=== PATIENT | male | born 1995 | race Caucasian/White ===

== ENCOUNTER 2016-10-19 07:13 | Outpatient (CLI) | END 2016-10-19 07:14 | LOC: AMBL 07:13 | PROVIDERS: ATTEND Emergency Medicine | DX: R56.9 Unspecified convulsions (principal) ==

== ENCOUNTER 2017-11-18 09:47 | Emergency (ER) ==
[2017-11-18 09:58] VITALS: BP 179/108; TEMP 98.1; BMI 24.3
[2017-11-18] MEDS ORDERED: ATIVAN IM STA (10:17)
[2017-11-18] MEDS ORDERED: ZESTRIL PO STA (10:37)
--- NOTE | 2017-11-18 11:10 | ED.PDOC ---
General ED Provider: Dr. MONTSE PEDROZA Chief Complaint: Hypertension Stated Complaint: CHEST PAIN , PALPITATION , HYPRTENSION Time Seen by Physician: 09:52 (STATED HE HAS A CHRONIC HYPERTENSION DOES NOT ABUSE DRUGS ) Mode of Arrival: Walk-In Information Source: Patient Exam Limitations: No limitations Primary Care Provider: ARCHIE FINK Referred to ED by: Other (SEEN WITH PT'S NURSE AT ALL TIMES NO SYNCOPE ) Nursing and Triage Documentation Reviewed and Agree: Yes Reviewed sepsis parameters & appropriate labs ordered?: No System Inflammatory Response Syndrome: Not Applicable Sepsis Protocol: For patient's 13 years and over: Temp is 96.8 and below OR 101 and greater Pulse >90 BPM Resp >20/minute Acutely Altered Mental Status Are patient's symptoms suggestive of a new infection, such as: -Pneumonia -Skin, Soft Tissue -Endocarditis -UTI -Bone, Joint Infection -Implantable Device -Acute Abdominal Infection -Wound Infection -Meningitis -Blood Stream Catheter Infection -Unknown System Inflammatory Response Syndrome: Not Applicable Review of Systems - Review Of Systems Constitutional: Reports: No symptoms Eyes: Reports: No symptoms Ears, Nose, Mouth, Throat: Reports: No symptoms Respiratory: Reports: No symptoms Cardiac: Reports: Chest pain, Lightheadedness, Palpitations GI: Reports: No symptoms : Reports: No symptoms Musculoskeletal: Reports: No symptoms Skin: Reports: No symptoms Neurological: Reports: No symptoms Endocrine: Reports: No symptoms Hematologic/Lymphatic: Reports: No symptoms All Other Systems: Reviewed and Negative Past Medical History - Past Medical History Previously Healthy: Yes Endocrine: Reports: None Cardiovascular: Reports: Hypertension Respiratory: Reports: None Hematological: Reports: None Gastrointestinal: Reports: None Genitourinary: Reports: None Neuro/Psych: Reports: None Musculoskeletal: Reports: None Cancer: Reports: None - Surgical History General Surgical History: Reports: None - Family History Family History: Reports: None - Social History Smoking Status: Current every day smoker, Light tobacco smoker Hx Substance Use: No Alcohol Screening: Occasionally Physical Exam - Physical Exam Appearance: Well-appearing, No pain distress, Well-nourished Eyes: BERNARD, EOMI, Conjunctiva clear ENT: Ears normal, Nose normal, Oropharynx normal Respiratory: Airway patent, Breath sounds clear, Breath sounds equal, Respirations nonlabored Cardiovascular: Tachycardia GI/: Soft, Nontender, No masses, Bowel sounds normal, No Organomegaly Musculoskeletal: Normal strength, ROM intact, No edema, No calf tenderness Skin: Warm, Dry, Normal color Neurological: Sensation intact, Motor intact, Reflexes intact, Cranial nerves intact, Alert, Oriented Psychiatric: Affect appropriate, Mood appropriate Interpretation - Machine Hoop Maker Rate: Tachy Rhythm: Sinus - EKG Interpretation Rate: Tachy Rhythm: Sinus Ectopy: None Pollock: NL ST Segment: Other (T INVERSION INFERIOR LEADS) Physician Notification - Case Discussed Physician Notified: RAMON HAGAN Time of Notification: 11:16 (TRANSFER ) Critical Care Note - Critical Care Note Total Time (mins): 0 Course - Course Hematology/Chemistry: 11/18/17 10:30 11/18/17 10:30 Orders, Labs, Meds: Lab Review 11/18/17 11/18/17 10:30 10:30 WBC 13.26 H RBC 5.05 Hgb 15.2 Hct 43.2 MCV 85.5 MCH 30.1 MCHC 35.2 RDW Coeff of Jaquan 13.3 Plt Count 297 Immature Gran % (Auto) 0.2 Neut % (Auto) 85.6 Lymph % (Auto) 9.7 L [place] % (Auto) 4.1 Eos % (Auto) 0.1 Baso % (Auto) 0.3 Immature Gran # (Auto) 0.0 Neut # (Auto) 11.4 H Lymph # (Auto) 1.3 [place] # (Auto) 0.5 Eos # (Auto) 0.0 Baso # (Auto) 0.0 Sodium 141 Potassium 3.5 Chloride 103 Carbon Dioxide 26 Anion Gap 15.5 BUN 12 Creatinine 0.76 Estimated GFR (MDRD) 128.00 BUN/Creatinine Ratio 15.78 Glucose 119 H Calcium 10.2 Total Bilirubin 0.6 AST 14 L ALT 15 Alkaline Phosphatase 57 Total Creatine Kinase 62 Troponin I < 0.0100 Total Protein 8.0 Albumin 4.6 Globulin 3.4 Albumin/Globulin Ratio 1.35 Orders Category Date Time Status EKG-(ED ONLY) Stat CARDIO 11/18/17 10:17 Completed CBC W/ AUTO DIFF Stat LAB 11/18/17 10:30 Completed COMPREHENSIVE METABOLIC PANEL Stat LAB 11/18/17 10:30 Completed CREATINE KINASE Stat LAB 11/18/17 10:30 Completed FREE T4 (FREE THYROXINE) Stat LAB 11/18/17 10:30 Received THYROID STIMULATING HORMONE Stat LAB 11/18/17 10:30 Received TROPONIN I Stat LAB 11/18/17 10:30 Completed URINE DRUG SCREEN (RAPID FOR ED) [DRUG SCREEN, URINE, LAB 11/18/17 10:18 Uncollected RAPID] Stat Lisinopril [Zestril] MEDS 11/18/17 10:37 Discontinued 10 mg PO ONCE STA Medications Discontinued Medications Generic Name Dose Route Start Last Admin Trade Name David PRN Reason Stop Dose Admin Lisinopril 10 mg 11/18/17 10:37 11/18/17 10:43 Zestril PO 11/18/17 10:38 10 mg ONCE STA Administration Vital Signs: Temp Pulse Resp BP Pulse Ox 11/18/17 09:49 98.1 F 133 H 22 179/108 H 98 FELI Risk Score Age >/= 65: No >/= 3 CAD Risk Factors: No ASA Use in Past 7 Days: No Severe Angina (>/= 2 episodes in 24 hours): No EKG ST Changes >/= 0.5mm: No Postive Cardiac Marker: No FELI Total Score: 0 FELI Risk Score: Risk Score Odds of by 30D 0 0.1 (0.1-0.2) 1 0.3 (0.2-0.3) 2 0.4 (0.3-0.5) 3 0.7 (0.6-0.9) 4 1.2 (1.0-1.5) 5 2.2 (1.9-2.6) 6 3.0 (2.5-3.6) 7 4.8 (3.8-6.1) Departure - Departure Time of Disposition: 12:00 Disposition: TSF SHORT-TRM HOSP Discharge Problem: Chest pain Qualifiers: Ischemic chest pain type: stable angina pectoris Instructions: Chest Pain (ED) Condition: Good Pt referred to PMD for follow-up: Yes IPMP verified?: No Additional Instructions: Please call your Family Physician as soon as possible to schedule a follow-up appointment. Allergies/Adverse Reactions: Allergies No Known Allergies Allergy (Unverified 11/18/17 09:58) Disposition Discussed With: Patient
[2017-11-18] MEDS ORDERED: ASPIRIN CHEWABLE PO STA (11:16)
== END 2017-11-18 12:15 | disposition short-term general hospital (02) ==
LOC: ED 09:47
DX: I20.9 Angina pectoris, unspecified (principal); I10 Essential (primary) hypertension; F17.210 Nicotine dependence, cigarettes, uncomplicated; R00.0 Tachycardia, unspecified; R51 Headache
CPT/HCPCS: 36415; 80053; 82550; 84439; 84443; 84484; 85025; 93005; 93010; 99285